=== PATIENT | female | born 1995 | race Two or more races ===

== ENCOUNTER 2017-11-19 00:03 | Emergency (ER) | payer SELFPAY ==
[~2017-11-19] VITALS: Ht 165.1 cm; Wt 63.5 kg
--- NOTE | 2017-11-19 00:23 | NUR ---
Pt came to ER with steady gait, c/o skin rash and itchiness on extremities and torso.
--- NOTE | 2017-11-19 00:25 | NUR ---
Dr. Kothari at bedside for MSE.
--- NOTE | 2017-11-19 00:35 | NUR ---
Patient discharged to home in stable conditon. Written and verbal after care instructions given. Patient verbalizes understanding of instructions. Patient ambulated out of ER with steady gait, no acute signs of distress, VSS, all belongings taken.
[2017-11-19 00:37] VITALS: BP 130/92
== END 2017-11-19 00:37 | disposition home or self-care (01) ==
LOC: ER 00:14
DX: S60.569A Insect bite (nonvenomous) of unspecified hand, initial encounter (principal); S30.860A Insect bite (nonvenomous) of lower back and pelvis, initial encounter; S40.269A Insect bite (nonvenomous) of unspecified shoulder, initial encounter; B86 Scabies; W57.XXXA Bitten or stung by nonvenomous insect and other nonvenomous arthropods, initial encounter; Y93.89 Activity, other specified; Y92.89 Other specified places as the place of occurrence of the external cause; Y99.8 Other external cause status
CPT/HCPCS: A4663